=== PATIENT | female | born 1990 | race Caucasian/White ===

== ENCOUNTER 2019-02-26 08:15 | Outpatient (CLI) | payer OTHER | END 2019-02-26 08:39 | disposition home or self-care (01) | LOC: RX STUDY 08:15 | DX: R13.19 Other dysphagia (principal) ==

== ENCOUNTER 2019-04-06 14:36 | Outpatient (CLI) | payer OTHER | END 2019-04-06 14:46 | disposition home or self-care (01) | LOC: LAB 14:36 | DX: R10.84 Generalized abdominal pain (principal); R22.1 Localized swelling, mass and lump, neck ==

== ENCOUNTER 2019-04-13 10:56 | Outpatient (CLI) | payer OTHER | END 2019-04-13 11:24 | disposition home or self-care (01) | LOC: MRI 10:56 | DX: E04.1 Nontoxic single thyroid nodule (principal) | CPT/HCPCS: 70542 ==

== ENCOUNTER 2020-08-16 05:55 | Day surgery (SDC) | payer OTHER ==
[~2020-08-16 05:55] MED LIST: SYNTHROID50 MCG PO
== END 2020-08-16 16:50 | disposition home or self-care (01) ==
LOC: CIR.AMB 05:55
PROVIDERS: ATTEND Colon & Rectal Surgery
DX: K64.8 Other hemorrhoids (principal); K64.4 Residual hemorrhoidal skin tags; Z20.828 Contact with and (suspected) exposure to other viral communicable diseases

== ENCOUNTER 2021-03-19 11:03 | Outpatient (CLI) | payer OTHER | END 2021-03-19 11:16 | disposition home or self-care (01) | LOC: SONOGRAMA 11:03 → MAMO-SONO 11:05 → SONOGRAMA 11:16 | PROVIDERS: ATTEND Internal Medicine Endocrinology, Diabetes & Metabolism | DX: E04.1 Nontoxic single thyroid nodule (principal) ==

== ENCOUNTER 2022-12-25 10:44 | Outpatient (CLI) | payer OTHER | END 2022-12-25 11:08 | disposition home or self-care (01) | LOC: RAD 10:44 | DX: R55 Syncope and collapse (principal); R42 Dizziness and giddiness; E04.2 Nontoxic multinodular goiter ==

== ENCOUNTER 2025-03-23 11:03 | Outpatient (CLI) | payer OTHER | END 2025-03-23 11:13 | disposition home or self-care (01) | LOC: SONOGRAMA 11:03 | PROVIDERS: ATTEND Internal Medicine Endocrinology, Diabetes & Metabolism | DX: E04.2 Nontoxic multinodular goiter (principal) ==